=== PATIENT | female | born 1940 | race Caucasian/White ===

== ENCOUNTER 2018-11-08 06:57 | Day surgery (SDC) | payer MEDICARE, OTHER ==
[~2018-11-08] VITALS: Ht 165.1 cm; Wt 86.6 kg
[~2018-11-08 06:57] MED LIST: LEVSOD75
--- NOTE | 2018-11-08 08:08 | NUR ---
11/08/18 0808 Gary Sales IN RIGHT HAND
== END 2018-11-08 10:04 | disposition home or self-care (01) ==
LOC: ORSCSDS 06:57
PROVIDERS: Orthopaedic Surgery
PROC: 01N50ZZ Release Median Nerve, Open Approach (ICD-10-PCS; principal; 2018-11-08 08:30)
DX: G56.01 Carpal tunnel syndrome, right upper limb (principal); F17.210 Nicotine dependence, cigarettes, uncomplicated; Z79.899 Other long term (current) drug therapy
CPT/HCPCS: A9270-GY; J0690; J2250; J2405; J2704; J3010

== ENCOUNTER 2019-07-03 12:48 | Emergency (ER) | payer MEDICARE, OTHER ==
[~2019-07-03] VITALS: Ht 167.6 cm; Wt 91.6 kg
[2019-07-03] MEDS ORDERED: Percocet 5-3251 EACH PO (14:11)
== END 2019-07-03 14:30 | disposition home or self-care (01) ==
LOC: ER 12:48
DX: S42.202A Unspecified fracture of upper end of left humerus, initial encounter for closed fracture (principal); E03.9 Hypothyroidism, unspecified; F17.200 Nicotine dependence, unspecified, uncomplicated; Z79.899 Other long term (current) drug therapy; X58.XXXA Exposure to other specified factors, initial encounter
CPT/HCPCS: 29105; 73030; 99283-25; A9270-GY

== ENCOUNTER 2021-03-14 09:42 | Day surgery (SDC) | payer MEDICARE, OTHER ==
[~2021-03-14 09:42] MED LIST changes: +Percocet 5-3251 EACH PO
[2021-03-31] MEDS ORDERED: Voltaren100 GM TOP (14:08)
[2021-03-31] MEDS ORDERED: GABA300 PO (14:08)
[2021-03-31] MEDS ORDERED: MELO7.5 (14:09)
[2021-03-31] MEDS ORDERED: HYDCHL12.5 PO (14:09)
[2021-03-31] MEDS ORDERED: ALLERCLEAR10 MG PO (14:09)
[2021-03-31] MEDS ORDERED: NAPR500 PO (14:10)
[2021-03-31] MEDS ORDERED: TRAM50 PO (14:10)
== END 2021-03-14 12:00 | disposition home or self-care (01) ==
LOC: MOI US 09:42 → EDSTATUS 10:15 → MOI US 10:15
DX: C50.811 Malignant neoplasm of overlapping sites of right female breast (principal); R59.0 Localized enlarged lymph nodes; Z88.5 Allergy status to narcotic agent; Z91.018 Allergy to other foods
CPT/HCPCS: 38505; 76942; 88305; 88342; A4648

== ENCOUNTER 2021-04-01 07:17 | Day surgery (SDC) | payer MEDICARE, OTHER ==
[~2021-04-01 07:17] MED LIST changes: +ALLERCLEAR10 MG PO; +GABA300 PO; +HYDCHL12.5 PO; +MELO7.5; +NAPR500 PO; +TRAM50 PO; +Voltaren100 GM TOP
== END 2021-04-01 23:33 | disposition home or self-care (01) ==
LOC: MOI US 07:17
DX: C50.911 Malignant neoplasm of unspecified site of right female breast (principal)
CPT/HCPCS: 19285; 19286; 77065; A4648

== ENCOUNTER 2021-04-05 09:29 | Day surgery (SDC) | payer MEDICARE, OTHER ==
[~2021-04-05] VITALS: Ht 165.1 cm; Wt 83.3 kg
--- NOTE | 2021-04-05 12:21 | NUR ---
History, Chart, Medications and Allergies reviewed before start of procedure. Lungs clear T/O to Auscultation. Patient confirms NPO status and agrees with scheduled surgery. Pre-Op teaching done. Pt verbalizes understanding. Patient States Post-Procedure ride home has been arranged. Patient reports completing Chlorhexadine shower X2 prior to admission to hospital.
--- NOTE | 2021-04-05 17:54 | NUR ---
Patient up to Ambulate independently. Gait steady. Discharge instructions reviewed with patient. Patient verbalizes understanding. Copy given to patient to take home. Dressing to procedure site clean, dry, intact with no visible drainage, swelling, erythema or bruising noted. Patient States Post-Procedure ride home has been arranged. Discharged via wheelchair to private car for ride home. all belonings accounted for.
== END 2021-04-05 17:56 | disposition home or self-care (01) ==
LOC: ORSCMMR 09:29 → NM 10:30 → ORSCMMR 17:56
PROVIDERS: Surgery
PROC: 07B50ZX Excision of Right Axillary Lymphatic, Open Approach, Diagnostic (ICD-10-PCS; principal; 2021-04-05 13:30)
PROC: 0HBT0ZZ Excision of Right Breast, Open Approach (ICD-10-PCS; principal; 2021-04-05 13:30)
DX: C50.911 Malignant neoplasm of unspecified site of right female breast (principal); D36.0 Benign neoplasm of lymph nodes; F17.210 Nicotine dependence, cigarettes, uncomplicated; E03.9 Hypothyroidism, unspecified; Z79.899 Other long term (current) drug therapy
CPT/HCPCS: 38792; 76098; A9270; A9520; J0690; J1100; J2250; J2405; J2704; J3010; J7120; Q9968

== ENCOUNTER 2021-04-12 07:58 | Day surgery (SDC) | payer MEDICARE, OTHER ==
[~2021-04-12] VITALS: Ht 165.1 cm; Wt 84.3 kg
--- NOTE | 2021-04-12 13:44 | NUR ---
Patient up to Ambulate independently WITH PERSONAL CANE. Gait steady. Discharge instructions reviewed with patient. Patient verbalizes understanding. Copy given to patient to take home. Discharged via wheelchair to private car for ride home WITH DAUGHTER IN LAW.PRESCRIPTION FOR PAIN MEDICATION IN DISCHARGE FOLDER WITH PT.BREAST BINDER IN PLACE AND GAUZE REMAINS CDI.
== END 2021-04-12 13:46 | disposition home or self-care (01) ==
LOC: ORSCMMR 07:58 → ORD 09:45 → ORSCMMR 09:45 → ORD 10:15 → ORSCMMR 13:46
PROVIDERS: Surgery
PROC: 0HBT0ZZ Excision of Right Breast, Open Approach (ICD-10-PCS; principal; 2021-04-12 11:00)
DX: C50.911 Malignant neoplasm of unspecified site of right female breast (principal); I10 Essential (primary) hypertension; F17.210 Nicotine dependence, cigarettes, uncomplicated; E03.9 Hypothyroidism, unspecified; G62.9 Polyneuropathy, unspecified; Z79.899 Other long term (current) drug therapy
CPT/HCPCS: A9270; J0690; J1100; J2250; J2405; J2704; J3010; J7120

== ENCOUNTER 2022-10-03 08:07 | Day surgery (SDC) | payer MEDICARE, OTHER ==
[~2022-10-03] VITALS: Ht 167.6 cm; Wt 88.2 kg
[~2022-10-03 08:07] MED LIST changes: +ANASTROZOLE1 M7 PO; +EUTHYROX88 MCG PO; +HYDCHL25 PO; +LEVSOD25 PO; +MELO7.5 PO; +NATURAL CALCIUM PO
[2022-10-03] MEDS ORDERED: VITAMIN D31000 UNI1 PO (09:51)
--- NOTE | 2022-10-03 14:00 | NUR ---
PATIENT ARRIVED TO ROOM VIA BED. AQUACEL TO LEFT KNEE, POLAR PACK IN PLACE. PATIENT HAS FULL SENSATION TO BLE, WIGGLES & MOVES TOES/FEET APPROPRIATELY. VSS ON RA. LUNGS CLEAR. ORIENTED TO ROOM & CALL LIGHT, IN REACH.
--- NOTE | 2022-10-03 18:31 | NUR ---
SHIFT SUMMARY POD 0 L TKA, AQUACEL IN PLACE, POLAR PACK, ISAC HOSE, & SCD'S ON. DRESSING C/D/I. PATIENT HAS REPORTED MINIMAL PAIN T/O SHIFT, MEDICATED PER EMAR. EATING & DRINKING WELL, DENIES N/V. PATIENT HAS NOT YET VOIDED SINCE SURGERY. USES CALL LIGHT APPROPRIATELY, WILL REPORT TO ONCOMING RN AT 1900.
--- NOTE | 2022-10-04 04:11 | NUR ---
SHIFT SUMMARY PT RESTED WELL T/O SHIFT. NO ACUTE CHANGES. 2 NORCO/TYLENOL/TORADOL FOR PAIN MANAGEMENT. JULIO WRAP TO LEFT KNEE REMAINS CDI WITH POLAR PACK IN PLACE. UP WITH 1 MIN ASSIST USING FWW + GB TO CHAIR/BRP. ESTER PO. USES CALL LIGHT APPROPRIATELY.
[2022-10-04 05:32] LABS: BASOPHILS ABSOLUTE AUTO 0.01 K/mm3 (0.00-0.23); BASOPHILS PERCENT AUTO 0 % (0-2); EOSINOPHILS PERCENT AUTO 0 % (0-6); Hematocrit 31.4 % (33.0-51.0); Hemoglobin 10.5 g/dL (11.5-16.0); IMMATURE GRAN ABSOLUTE AUTO 0.04 K/mm3 (0.00-0.10); IMMATURE GRAN PERCENT AUTO 0 % (0-1); LYMPHOCYTES ABSOLUTE AUTO 0.65 K/mm3 (0.84-5.20); LYMPHOCYTES PERCENT AUTO 6 % (21-46); MONOCYTES ABSOLUTE AUTO 0.66 K/mm3 (0.16-1.47); MONOCYTES PERCENT AUTO 6 % (4-13); Mean Corpuscular HGB 30.6 pg (26.0-34.0); Mean Corpuscular HGB Conc 33.4 g/dL (31.5-36.5); Mean Corpuscular Volume 92 fL (80-100); Mean Platelet Volume 9.6 fL (9.1-12.4); NEUTROPHILS ABSOLUTE AUTO 8.97 K/mm3 (1.96-9.15); NEUTROPHILS PERCENT AUTO 87 % (41-73); Platelet Count 182 K/mm3 (150-400); RDW Coefficient Variation 13.5 % (11.7-14.2); RDW Standard Deviation 45.6 fL (35.1-46.3); Red Blood Cell Count 3.43 M/mm3 (3.80-5.20); White Blood Cell Count 10.33 K/mm3 (4.00-11.30)
[2022-10-04 06:25] LABS: Bun/Creatinine Ratio 30.3 (12.0-20.0); Creatinine, Blood 0.76 mg/dL (0.40-1.00); Potassium, Blood 4.5 mmol/L (3.5-5.5)
[2022-10-04] MEDS ORDERED: CALCIUM CARBON500 M1 PO (08:43)
[2022-10-04] MEDS ORDERED: Aspir 8181 MG PO (08:44)
[2022-10-04] MEDS ORDERED: HYDR1TAB94 PO (08:45)
--- NOTE | 2022-10-04 16:55 | NUR ---
DISCHARGE SUMMARY PATIENT ALERT AND ORIENTED. ONE EPISODE OF VOMITING THIS AM. RESOLVED AND ABLE TO TOLERATE REGULAR DIET AT LUNCH. PAIN CONTROLLED WITH PO PAIN MEDS. CLEARED BY PHYSICAL THERAPY. SBA WITH FWW TO AMBULATE IN HALLS. LEFT KNEE AQUACEL C/D/I. DISCHARGE ORDERS GIVEN. DISCHARGE EDUCATION GIVEN ON NEW MEDS, ACTIVITY, INCISION CARE, AND FOLLOW UP APPTS. IV DC'D WNL. PATIENT LEFT UNIT AT 1530 VIA WHEELCHAIR WITH FAMILY MEMBER FOR HOME.
== END 2022-10-04 15:33 | disposition home or self-care (01) ==
LOC: ORSCMMR 08:07 → ORD 10:00 → ORSCMMR 11:00 → ORD 11:00 → ORSCMMR 13:15 → SURS 14:06 → ORSCMMR 10-04 15:33
PROVIDERS: Orthopaedic Surgery
PROC: 8E0Y0CZ Robotic Assisted Procedure of Lower Extremity, Open Approach (ICD-10-PCS; principal; 2022-10-03 09:45)
PROC: 0SRD0JA Replacement of Left Knee Joint with Synthetic Substitute, Uncemented, Open Approach (ICD-10-PCS; principal; 2022-10-03 09:45)
DX: M17.12 Unilateral primary osteoarthritis, left knee (principal); K21.9 Gastro-esophageal reflux disease without esophagitis; E03.9 Hypothyroidism, unspecified; Z87.891 Personal history of nicotine dependence; Z79.899 Other long term (current) drug therapy
CPT/HCPCS: 27447; 20985; S2900; 36415; 73560-LT; 80048; 85025; 97110; 97116; 97162; A9270; C1776; J0171; J0690; J0735; J1100; J1170; J1885; J2250; J2405; J2704; J2710; J2795; J3010; J7120

== ENCOUNTER → 2023-11-07 | Outpatient (CLI) | payer MEDICARE, OTHER ==
[~2023-11-07] MED LIST changes: +Aspir 8181 MG PO; +CALCIUM CARBON500 M1 PO; +HYDR1TAB94 PO; +VITAMIN D31000 UNI1 PO
== END | disposition home or self-care (01) ==
LOC: LAB SHORT 08:18 → LAB 08:18
DX: D48.5 Neoplasm of uncertain behavior of skin (principal)
CPT/HCPCS: 88305